=== PATIENT | female | born 1970 | race African-American/Black ===

== ENCOUNTER 2017-10-26 16:15 | Observation (INO) | payer BC, OTHER ==
[~2017-10-26 16:15] MED LIST: Iopamidol 370 76% 100 ML VIAL ONE
[2017-10-26 17:30] LABS: Bilirubin Negative (Negative); Blood, Urine Negative (Negative); Clarity Clear (Clear); Glucose, Urine (Dipstick) Negative (Negative); Leukocyte Negative (Negative); Nitrite Negative (Negative); Protein, Urine (Dipstick) Negative (Neg-Trace); Urobilinogen 0.2 mg/dL (0.2-1.0)
[2017-10-26] MEDS ORDERED: Ondansetron HCl/PF 4 MG/2 ML Vial ONE (18:09)
[2017-10-26 18:28] LABS: ALT (SGPT) 25 U/L (8-55); AST (SGOT) 16 U/L (5-34); Albumin 3.9 g/dL (3.5-5.0); Alkaline Phosphatase 83 U/L (40-150); Anion Gap 14 mmol/L (10-20); BUN (Urea Nitrogen) 8 mg/dL (7.0-18.7); Bilirubin, Total 0.4 mg/dL (0.2-1.2); Calc. Creatinine Clearance 0 mL/min (70-130); Calcium 9.5 mg/dL (7.8-10.44); Carbon Dioxide 24 mmol/L (22-29); Chloride 105 mmol/L (98-107); Estimated GFR-MDRD 89; Globulin 4.1 g/dL (2.4-3.5); Glucose 98 mg/dL (70-105); Lipase 30 U/L (8-78); Potassium 3.8 mmol/L (3.5-5.1); Sodium 139 mmol/L (136-145)
[2017-10-26 18:39] LABS: Band 4 % (5-11); Eosinophils 1 % (0-10); Hemoglobin 12.4 g/dL (12.0-16.0); Lymphocytes 21 % (21-51); MDiff Complete? YES; Mean Corpuscular HGB CONC 32.7 g/dL (32.0-36.0); Mean Corpuscular Volume 85.7 fl (81.0-99.0); Mean Platelet Volume 7.7 fL (7.4-10.4); Monocytes 4 % (0-10); Neutrophil 70 % (42-75); PLT Morphology Comment Appears Adequate; Platelet Count 255 thou/uL (130-400); RBC Distribution Width 12.4 % (11.5-14.5); RBC Morphology Normal; Red Blood Cell (RBC) Count 4.43 mill/uL (4.20-5.40); White Blood Cell (WBC) Count 7.6 thou/uL (4.8-10.8)
[2017-10-26] MEDS ORDERED: Levofloxacin 500 mg/D5W 100 ml Premix Bag ONE (19:33)
[2017-10-26] MEDS ORDERED: metroNIDAZOLE 500 MG/100 ML BAG ONE (19:34)
--- NOTE | 2017-10-26 20:20 | CT ---
CT ABDOMEN AND PELVIS WITH IV CONTRAST: 10/26/17 HISTORY: Abdominal pain with onset of symptoms one day ago. Patient states that abdominal pain stated centrall y and now is located in the right lower quadrant. COMPARISON: Not available. FINDINGS: The appendix is mildly dilated measuring 9 mm in diameter with mild enhancement and thickening of the farah of the appendix with adjacent periappendiceal inflammatory changes suggesting appendicitis. Postcholecystectomy changes are noted. There is colonic diverticulosis. Small amount of free fluid is seen in the pelvis. There is minimal d ependent bibasilar atelectasis. The liver, spleen, pancreas, bilateral adrenal glands, kidneys, and urinary bladder demonstrate a nor mal CT appearance. The uterus appears absent likely related to prior hysterectomy. There are post cho lecystectomy changes noted. IMPRESSION: 1. Acute appendicitis. 2. Post cholecystectomy change and findings likely related to hysterectomy. 3. Small amount of free fluid in the pelvis. There is no fluid collection seen to suggest an abs cess. 4. Colonic diverticulosis. 5. Tiny fat containing umbilical hernia. 6. Above findings discussed with Dr. Walter in the Emergency Department on 10/26/17 at 1715 hours . POS: [facility]
[2017-10-26 22:38] VITALS: BMI 26.8
[2017-10-26] MEDS ORDERED: Morphine 4 MG/ML VIAL SLOW IVP PRN ×2 (22:59→23:00)
[2017-10-26] MEDS ORDERED: Ondansetron HCl/PF 4 MG/2 ML Vial SLOW IVP PRN (23:00)
[2017-10-27] MEDS: Sodium Chloride 0.9% 1,000 ML IV SCH ×2 (02:00→06:47)
[2017-10-27] MEDS ORDERED: metroNIDAZOLE 500 MG in Premix Bag 1 BAG IVPB SCH (02:00)
[2017-10-27] MEDS ORDERED: Sodium Chloride 0.9% 1,000 ML IV SCH (07:45)
--- NOTE | 2017-10-27 08:56 | HP ---
CHIEF COMPLAINT: Right lower quadrant abdominal pain. HISTORY: The patient is a 47-year-old female with 3-day history of right lower quadrant pain associa bk with nausea, no vomiting, no previous episodes. Last menstrual period was a hysterectomy 20 year s ago. She has had a low grade fever of 99. PAST MEDICAL HISTORY: Gastroesophageal reflux disease, hiatal hernia. PAST SURGICAL HISTORY: Hysterectomy, laparoscopic cholecystectomy, section x2. MEDICATIONS: Dexilant. ALLERGIES: PENICILLIN, ERYTHROMYCIN. 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 No tobacco. She drinks rare alcohol. FAMILY HISTORY: Heart disease and hypertension. PHYSICAL EXAMINATION: VITAL SIGNS: Temperature 99, pulse 90, blood pressure 96/57. She is awake, alert, in no apparent di stress. Her IV is in her left IJ. HEENT: Otherwise unremarkable. LUNGS: Clear. HEART: Regular rate and rhythm. ABDOMEN: Soft, nondistended percussion, tender in the right lower quadrant. EXTREMITIES: Unremarkable. LABORATORY: White count 7.6, H&H 12 and 38, platelet count 255. Electrolytes are fine. Urinalysis clear. CT scan shows appendicitis. ASSESSMENT: Acute appendicitis. PLAN: Laparoscopic appendectomy. CONSENT: I have discussed the planned procedure as well as risk of bleeding, infection, injury to benjamin wel, bladder, need to open. She understands and gives informed consent.
[2017-10-27] MEDS ORDERED: Morphine 4 MG/ML VIAL ONE (08:58)
[2017-10-27] MEDS ORDERED: Levofloxacin 500 mg/D5W 100 ml Premix Bag ONE (08:58)
[2017-10-27] MEDS ORDERED: FLU VACC QS2017-18 36 mo. & older 0.5 ML SYRINGE IM ONE (09:00)
[2017-10-27] MEDS ORDERED: Bupivacaine 0.25% HCL 30 ML VIAL ONE (09:40)
[2017-10-27] MEDS ORDERED: Bupivacaine/Epinephrine 0.25% 30 ML VIAL ONE (09:41)
[2017-10-27] MEDS ORDERED: Fentanyl 250 MCG/5 ML VIAL ONE (09:42)
[2017-10-27] MEDS ORDERED: Ondansetron HCl/PF 4 MG/2 ML Vial IVP PRN ×2 (10:50→10:59)
[2017-10-27] MEDS ORDERED: Dextrose 5% in Water 1,000 ML IV PRN (10:50)
[2017-10-27] MEDS ORDERED: Promethazine HCl 25 MG/ML VIAL IM PRN ×2 (10:50→10:59)
[2017-10-27] MEDS ORDERED: Dextrose 50% Abboject 50 ML SYRINGE SLOW IVP PRN (10:50)
[2017-10-27] MEDS ORDERED: HYDROcodone/Acetaminophen 10/325 mg Tablet PO PRN ×2 (10:50)
[2017-10-27] MEDS ORDERED: hydrALAZINE 20 MG/ML VIAL SLOW IVP PRN (10:50)
[2017-10-27] MEDS ORDERED: Promethazine HCl 25 MG/ML VIAL SLOW IVP PRN (10:59)
--- NOTE | 2017-10-27 11:11 | OP ---
DATE OF PROCEDURE: 10/28/2107 PREOPERATIVE DIAGNOSIS: Acute appendicitis. SURGEON: Seven Hughes M.D. PROCEDURE PERFORMED: Laparoscopic appendectomy. INDICATIONS: The patient is a 47-year-old female who came in with 3-day history of right lower quadr ant pain. CT showed appendicitis. FINDINGS: Acute suppurative nonperforated appendicitis. PROCEDURE IN DETAIL: After informed consent was obtained, the patient was taken to the operating jessy m and given general endotracheal anesthesia and was placed in the supine position. The abdomen was p repped and draped in usual fashion. Local anesthesia infiltrated subcutaneously and deep and a subum bilical incision was performed. The subcu divided sharply. The fascia was incised. Digital palpati on revealed multiple adhesions. I was able to lyse some digitally then inserted the blunt 10-12 mm t rocar. Pneumoperitoneum was created to a pressure of 15 mmHg. There was a great deal of adhesions l ocally, so under direct vision, I placed a 5-mm port on the right side and looked back and it looked like there were a lot of adhesions, so I put another 5 mm port on the left side and did a laparoscopi c lysis of adhesions utilizing the LigaSure. There was some bowel down in the deep pelvis that was a dhesed, but the adhesions were all omentum then found the appendix and mesoappendix was divided utili zing the LigaSure. The base of the appendix divided with a linear 45 mm white load stapler. It was placed in an Endosac removed and removed from the abdomen in an Endosac. Hemostasis was assured. Th e abdomen was irrigated and irrigation fluid removed. The fascia was closed with interrupted 0 Vicry l suture. Skin closed with interrupted 4-0 Rapide. Dermabond applied. The patient tolerated the pr ocedure well and was transferred to recovery in good condition. Sponge and needle count verified cor rect x2.
[2017-10-27] MEDS ORDERED: Morphine 4 MG/ML VIAL SLOW IVP PRN (11:15)
[2017-10-27] MEDS: D5 1/2 NS w/20 mEq KCL 1,000 ML IV SCH ×2 (12:41→20:36)
[2017-10-27] MEDS: Ketorolac Tromethamine 30 MG/ML VIAL IVP SCH ×3 (12:53→20:36)
[2017-10-27] MEDS ORDERED: Lidocaine 1% PF 5 ML VIAL ONE (15:55)
[2017-10-27] MEDS ORDERED: Ondansetron HCl/PF 4 MG/2 ML Vial ONE (15:55)
[2017-10-27] MEDS ORDERED: PHENYLEPHRINE-NS 100 MCG/ML 10 ML SYRINGE ONE (15:55)
[2017-10-27] MEDS ORDERED: Propofol 200 MG/20 ML VIAL ONE (15:55)
[2017-10-27] MEDS ORDERED: Glycopyrrolate 0.2 MG/ML 5 ML SYRINGE ONE (15:55)
[2017-10-27] MEDS ORDERED: Dexamethasone 20 MG/5 ML VIAL ONE (15:55)
[2017-10-27] MEDS ORDERED: Ketorolac Tromethamine 30 MG/ML VIAL ONE (15:55)
[2017-10-27] MEDS: Famotidine/PF 20 mg/2ml Vial SLOW IVP SCH (20:37)
[2017-10-27] MEDS: Famotidine 20 MG TAB PO SCH (20:37)
[2017-10-28 04:29] LABS: #Lymphocytes 1.2 thou/uL (1.20-3.40); #Monocytes 0.4 thou/uL (0.11-0.59); #Neutrophils 5.8 thou/uL (1.40-6.50); %Basophils 0.2 % (0.0-1.0); %Eosinophils 0.2 % (0.0-10.0); %Lymphocytes 16.6 % (21.0-51.0); %Monocytes 5.3 % (0.0-10.0); %Neutrophils 77.7 % (42.0-75.0); Hemoglobin 10.3 g/dL (12.0-16.0); Mean Corpuscular HGB CONC 31.5 g/dL (32.0-36.0); Mean Corpuscular Hemoglobin 28.9 pg (27.0-31.0); Mean Corpuscular Volume 91.8 fl (81.0-99.0); Mean Platelet Volume 7.7 fL (7.4-10.4); Platelet Count 204 thou/uL (130-400); RBC Distribution Width 12.4 % (11.5-14.5); Red Blood Cell (RBC) Count 3.56 mill/uL (4.20-5.40); White Blood Cell (WBC) Count 7.5 thou/uL (4.8-10.8)
[2017-10-28 04:33] LABS: Anion Gap 8 mmol/L (10-20); BUN (Urea Nitrogen) 6 mg/dL (7.0-18.7); Calc. Creatinine Clearance 99 mL/min (70-130); Calcium 8.8 mg/dL (7.8-10.44); Carbon Dioxide 25 mmol/L (22-29); Chloride 109 mmol/L (98-107); Estimated GFR-MDRD 88; Glucose 183 mg/dL (70-105); Potassium 4.1 mmol/L (3.5-5.1); Sodium 138 mmol/L (136-145)
[2017-10-28] MEDS: Ketorolac Tromethamine 30 MG/ML VIAL IVP SCH ×2 (04:58→09:22)
[2017-10-28] MEDS: D5 1/2 NS w/20 mEq KCL 1,000 ML IV SCH (06:04)
[2017-10-28 06:50] VITALS: TEMP 98.3
[2017-10-28] MEDS ORDERED: Enoxaparin Sodium 40 MG/0.4 ML SYRINGE SC SCH (09:00)
[2017-10-28] MEDS: Famotidine/PF 20 mg/2ml Vial SLOW IVP SCH (09:23)
[2017-10-28] MEDS: Famotidine 20 MG TAB PO SCH (09:23)
--- NOTE | 2017-10-28 10:49 | DIS ---
DATE OF ADMISSION: 10/26/2017 DATE OF DISCHARGE: 10/28/2017 DISCHARGE DIAGNOSIS: Acute appendicitis. PROCEDURES DURING ADMISSION: Laparoscopic appendectomy. HOSPITAL COURSE: The patient was admitted, taken to the operating room where she underwent a laparos copic appendectomy. Postoperatively, she has done well. She is tolerating a regular diet, afebrile. Discharged home in good condition. Pain control on p.o. meds. She will follow up with me in 2 wee ks. Meds include Zofran and hydrocodone.
[2017-10-28 11:42] VITALS: BP 123/75
== END 2017-10-28 14:10 | disposition home or self-care (01) ==
LOC: SCSER 16:15 → SURG A 21:12
PROVIDERS: ADMIT Surgery; ATTEND Surgery
PROC: 0DTJ4ZZ Resection of Appendix, Percutaneous Endoscopic Approach (ICD-10-PCS; principal; 2017-10-28)
DX: K35.80 Unspecified acute appendicitis (principal); K21.9 Gastro-esophageal reflux disease without esophagitis; Z88.0 Allergy status to penicillin; Z88.1 Allergy status to other antibiotic agents
CPT/HCPCS: 36415; 74177; 80048; 80053; 81003; 83690; 85025; 88304; 96361; 96365; 96366; 96372; 96375; 96376; G0378; J1100; J1650; J1885; J1956; J2001; J2270; J2405; J2704; J3010; S0020

== ENCOUNTER 2017-12-10 08:30 | Outpatient (CLI) | payer BC ==
[~2017-12-10 08:30] MED LIST changes: +ISOVUE-370 76%-LOCM 1 ML ONE; -Iopamidol 370 76% 100 ML VIAL ONE
== END 2017-12-10 08:31 | disposition home or self-care (01) ==
LOC: BICCT 08:30
PROVIDERS: ATTEND Surgery
DX: R10.31 Right lower quadrant pain (principal); K76.0 Fatty (change of) liver, not elsewhere classified; Z90.49 Acquired absence of other specified parts of digestive tract
CPT/HCPCS: 74177

== ENCOUNTER 2020-09-16 12:20 | Outpatient (CLI) | payer BC | END 2020-09-16 12:21 | disposition home or self-care (01) | LOC: BICRAD 12:20 | PROVIDERS: ATTEND Family Medicine | DX: M25.551 Pain in right hip (principal); M16.11 Unilateral primary osteoarthritis, right hip ==

== ENCOUNTER 2021-02-24 16:33 | Outpatient (CLI) | payer BC ==
[2021-02-25 12:32] LABS: SARS-CoV-2 PCR by NAA Not Detected (NotDetected)
== END 2021-02-24 16:34 | disposition home or self-care (01) ==
LOC: LABBT 16:33
PROVIDERS: ATTEND Internal Medicine Gastroenterology
DX: Z01.812 Encounter for preprocedural laboratory examination (principal); K21.9 Gastro-esophageal reflux disease without esophagitis; K44.9 Diaphragmatic hernia without obstruction or gangrene; Z20.822 Contact with and (suspected) exposure to COVID-19
CPT/HCPCS: U0003; U0005

== ENCOUNTER 2021-03-14 09:25 | Observation (INO) | payer BC ==
[2021-03-14] MEDS ORDERED: Levofloxacin 500 mg/D5W 100 ml Premix Bag ONE (09:48)
[2021-03-14 10:08] LABS: #Basophils 0.1 thou/uL (0.0-0.2); #Eosinphils 0.1 thou/uL (0.0-0.7); #Lymphocytes 1.8 thou/uL (1.20-3.40); #Monocytes 0.3 thou/uL (0.11-0.59); #Neutrophils 2.2 thou/uL (1.40-6.50); %Basophils 1.1 % (0.0-1.0); %Eosinophils 1.6 % (0.0-10.0); %Monocytes 7.2 % (0.0-10.0); %Neutrophils 49.1 % (42.0-75.0); Hemoglobin 12.9 g/dL (12.0-16.0); Mean Corpuscular HGB CONC 31.7 g/dL (32.0-36.0); Mean Corpuscular Hemoglobin 28.3 pg (27.0-31.0); Mean Corpuscular Volume 89.3 fL (78.0-98.0); Platelet Count 312 thou/uL (130-400); RBC Distribution Width 13.8 % (11.5-14.5); Red Blood Cell (RBC) Count 4.57 mill/uL (4.20-5.40); White Blood Cell (WBC) Count 4.5 thou/uL (4.8-10.8)
[2021-03-14 10:27] LABS: ALT (SGPT) 21 U/L (8-55); AST (SGOT) 15 U/L (5-34); Albumin 4.2 g/dL (3.5-5.0); Alkaline Phosphatase 122 U/L (40-110); Anion Gap 11 mmol/L (10-20); BUN (Urea Nitrogen) 11 mg/dL (7.0-18.7); Bilirubin, Total 0.4 mg/dL (0.2-1.2); Calc. Creatinine Clearance 72 mL/min (70-130); Calcium 9.7 mg/dL (7.8-10.44); Carbon Dioxide 25 mmol/L (22-29); Chloride 106 mmol/L (98-107); Globulin 4.5 g/dL (2.4-3.5); Glucose 96 mg/dL (70-105); Potassium 3.9 mmol/L (3.5-5.1); Protein, Total 8.7 g/dL (6.0-8.3); Sodium 138 mmol/L (136-145)
[2021-03-14] MEDS ORDERED: Bupivacaine 0.25% HCL 30 ML VIAL ONE (10:44)
[2021-03-14] MEDS ORDERED: Lidocaine 1% w/Epinephrine 1:100K 20 ML VIAL ONE (10:44)
[2021-03-14] MEDS ORDERED: Midazolam HCl 2 mg/2 ml Vial ONE (10:49)
[2021-03-14] MEDS ORDERED: Fentanyl 100 MCG/2 ML VIAL ONE ×2 (10:49→11:27)
[2021-03-14] MEDS ORDERED: Esmolol 100 MG/10 ML VIAL ONE (11:04)
[2021-03-14] MEDS ORDERED: Lidocaine 1% PF 5 ML VIAL ONE (11:04)
[2021-03-14] MEDS ORDERED: Rocuronium Bromide 10 MG/ML (10ML VIAL) ONE (11:04)
[2021-03-14] MEDS ORDERED: Ondansetron PF 4 MG/2 ML Vial ONE (11:04)
[2021-03-14] MEDS ORDERED: Glycopyrrolate 0.2 MG/ML 5 ML SYRINGE ONE (11:04)
[2021-03-14] MEDS ORDERED: PROPOFOL 200 MG/20 ML VIAL ONE (11:04)
[2021-03-14] MEDS ORDERED: Dexamethasone 20 MG/5 ML VIAL ONE (11:04)
[2021-03-14] MEDS ORDERED: PHENYLEPHRINE-NS 100 MCG/ML 10 ML SYRINGE ONE (11:04)
[2021-03-14] MEDS ORDERED: diphenhydrAMINE 50 MG/ML VIAL IVP PRN (12:48)
[2021-03-14] MEDS ORDERED: Ondansetron PF 4 MG/2 ML Vial IVP PRN (12:48)
[2021-03-14] MEDS ORDERED: Morphine 4 MG/ML VIAL SLOW IVP PRN (12:48)
[2021-03-14] MEDS ORDERED: Dextrose 50% Abboject 50 ML SYRINGE SLOW IVP PRN (12:48)
[2021-03-14] MEDS ORDERED: Morphine 2 MG/ML VIAL SLOW IVP PRN (12:48)
[2021-03-14] MEDS ORDERED: Dextrose 5% in Water 1,000 ML IV PRN (12:48)
[2021-03-14] MEDS ORDERED: hydrALAZINE 20 MG/ML VIAL SLOW IVP PRN (12:48)
[2021-03-14] MEDS ORDERED: Hydrocodone-Acetamin 15 ML UDCUP PO PRN (12:48)
[2021-03-14] MEDS ORDERED: Promethazine HCl 25 MG/ML VIAL IM PRN (12:48)
[2021-03-14] MEDS ORDERED: Morphine 4 MG/ML VIAL ONE (13:18)
[2021-03-14 15:41] VITALS: BMI 29.2
[2021-03-14] MEDS: Ketorolac Tromethamine 30 MG/ML VIAL IVP SCH (16:41)
[2021-03-14] MEDS: D5 1/2 NS w/20 mEq KCL 1,000 ML IV SCH (16:42)
[2021-03-15] MEDS: D5 1/2 NS w/20 mEq KCL 1,000 ML IV SCH ×2 (00:59→09:15)
[2021-03-15] MEDS: Ketorolac Tromethamine 30 MG/ML VIAL IVP SCH ×2 (01:02→06:12)
[2021-03-15 05:47] LABS: #Lymphocytes 1.3 thou/uL (1.20-3.40); #Monocytes 0.6 thou/uL (0.11-0.59); #Neutrophils 10.8 thou/uL (1.40-6.50); %Basophils 0.2 % (0.0-1.0); %Eosinophils 0.1 % (0.0-10.0); %Lymphocytes 9.9 % (21.0-51.0); %Monocytes 4.6 % (0.0-10.0); %Neutrophils 85.2 % (42.0-75.0); Hemoglobin 12.7 g/dL (12.0-16.0); Mean Corpuscular HGB CONC 31.8 g/dL (32.0-36.0); Mean Corpuscular Hemoglobin 28.9 pg (27.0-31.0); Mean Corpuscular Volume 90.9 fL (78.0-98.0); Mean Platelet Volume 8.3 fL (7.4-10.4); Platelet Count 288 thou/uL (130-400); RBC Distribution Width 13.8 % (11.5-14.5); Red Blood Cell (RBC) Count 4.39 mill/uL (4.20-5.40); White Blood Cell (WBC) Count 12.7 thou/uL (4.8-10.8)
[2021-03-15 06:08] LABS: Anion Gap 10 mmol/L (10-20); BUN (Urea Nitrogen) 7 mg/dL (7.0-18.7); Calc. Creatinine Clearance 80 mL/min (70-130); Calcium 9.4 mg/dL (7.8-10.44); Carbon Dioxide 23 mmol/L (22-29); Chloride 108 mmol/L (98-107); Glucose 146 mg/dL (70-105); Potassium 4.3 mmol/L (3.5-5.1); Sodium 137 mmol/L (136-145)
[2021-03-15] MEDS ORDERED: Pantoprazole 40 MG VIAL IVP SCH (09:00)
[2021-03-15] MEDS ORDERED: Enoxaparin Sodium 40 MG/0.4 ML SYRINGE SC SCH (09:00)
[2021-03-15 10:46] VITALS: BP 145/88; TEMP 98.4
== END 2021-03-15 10:45 | disposition home or self-care (01) ==
LOC: SDC 09:25 → SURG B 12:48
PROVIDERS: ADMIT Surgery; ATTEND Surgery
PROC: 0BQT4ZZ Repair Diaphragm, Percutaneous Endoscopic Approach (ICD-10-PCS; principal; 2021-03-14)
PROC: 0DV44ZZ Restriction of Esophagogastric Junction, Percutaneous Endoscopic Approach (ICD-10-PCS; 2021-03-14)
DX: K21.00 Gastro-esophageal reflux disease with esophagitis, without bleeding (principal); K44.9 Diaphragmatic hernia without obstruction or gangrene; Z90.49 Acquired absence of other specified parts of digestive tract; Z90.710 Acquired absence of both cervix and uterus; Z88.0 Allergy status to penicillin; Z88.1 Allergy status to other antibiotic agents; Z79.899 Other long term (current) drug therapy
CPT/HCPCS: 36415; 80048; 80053; 85025; 94760; 96374; 96375; 96376; C9113; G0378; J1100; J1650; J1885; J1956; J2250; J2270; J2405; J2704; J3010; J3480; S0020

== ENCOUNTER 2023-03-19 09:01 | Outpatient (CLI) | payer BC | END 2023-03-19 09:02 | disposition home or self-care (01) | LOC: BICMRI 09:01 | PROVIDERS: ATTEND Orthopaedic Surgery | DX: S46.011A Strain of muscle(s) and tendon(s) of the rotator cuff of right shoulder, initial encounter (principal); S43.431A Superior glenoid labrum lesion of right shoulder, initial encounter; M19.011 Primary osteoarthritis, right shoulder ==

== ENCOUNTER 2023-04-23 10:59 | Outpatient (CLI) | payer BC | END 2023-04-23 11:00 | disposition home or self-care (01) | LOC: BICMRI 10:59 | PROVIDERS: ATTEND Orthopaedic Surgery | DX: M47.22 Other spondylosis with radiculopathy, cervical region (principal); S46.011A Strain of muscle(s) and tendon(s) of the rotator cuff of right shoulder, initial encounter; M40.50 Lordosis, unspecified, site unspecified | CPT/HCPCS: 72141 ==